=== PATIENT | male | born 1990 | race Caucasian/White ===

== ENCOUNTER 2021-02-18 20:45 | Emergency (ER) | payer BC ==
--- NOTE | 2021-02-18 22:42 | US ---
EXAMINATION TYPE: US scrotum with doppler. Grayscale and color Doppler Duplex imaging performed of t emeterio scrotum. DATE OF EXAM: 02/18/2021 COMPARISON: NONE CLINICAL HISTORY: TESTICULAR SWELLING PAIN . EXAM MEASUREMENTS: TESTICLES: Right Testicle: 4.6 x 2.2 x 2.7 cm Left Testicle: 4.7 x 2.3 x 2.6 cm EPIDIDYMIS HEAD: Right Epididymis: 0.9 cm Left Epididymis: 0.8 cm Doppler performed to assess for testicular vascularity; good bilateral color flow and waveforms are s een. There is no evidence of testicular torsion. Presence of hydroceles: no Presence of varicoceles: no IMPRESSION: Normal exam. No testicular torsion or mass.
--- NOTE | 2021-02-18 22:56 | ED ---
Male Urogenital HPI - General Chief complaint: Urogenital Stated complaint: Testicle Pain Time Seen by Provider: 02/18/21 22:06 Source: patient Mode of arrival: ambulatory Limitations: no limitations - History of Present Illness Initial comments: Patient is 30-year-old man who presents to be evaluated for left testicular pain. The patient states that he noted onset of aching pain on , and A little bit worse on the following day and then was better Thursday and Thursday however it recurred today approximately 5 PM and has been moderate to severe since that time. The patient denies any known trauma. Patient states that he showed his and she felt there was swelling and they were therefore concerned about possibility of torsion. The patient has not noted any fever or chills. No change in urination. No urethral discharge. The patient denies any new sexual exposures. There is no abdominal pain. No change in urination or bowel movements. MD Complaint: testicle pain -: days(s) Location: left testicle Radiation: none Severity: moderate Quality: aching Consistency: constant Improves with: none Worsens with: palpation Reports: denies other symptoms - Related Data Sexually active: Yes Home Medications Medication Instructions Recorded Confirmed No Known Home Medications 02/18/21 02/18/21 Allergies Allergy/AdvReac Type Severity Reaction Status Date / Time codeine AdvReac Rash/Hives Verified 02/18/21 23:03 Review of Systems ROS Statement: Those systems with pertinent positive or pertinent negative responses have been documented in the HPI. ROS Other: All systems not noted in ROS Statement are negative. Constitutional: Denies: fever, chills Respiratory: Denies: cough, dyspnea Cardiovascular: Denies: chest pain Gastrointestinal: Denies: abdominal pain, nausea, vomiting, diarrhea, constipation Genitourinary: Reports: as per HPI, testicular pain. Denies: urgency, dysuria, frequency, hematuria, discharge Musculoskeletal: Denies: back pain Skin: Denies: rash Neurological: Denies: headache Past Medical History Past Medical History: No Reported History History of Any Multi-Drug Resistant Organisms: None Reported Additional Past Surgical History / Comment(s): VASECTOMY Past Psychological History: No Psychological Hx Reported Smoking Status: Never smoker Past Alcohol Use History: None Reported Past Drug Use History: None Reported General Exam Limitations: no limitations General appearance: alert, in no apparent distress Head exam: Present: atraumatic, normocephalic Eye exam: Present: normal appearance GI/Abdominal exam: Present: soft. Absent: distended, tenderness, guarding, rebound, rigid, mass, pulsatile mass, hernia exam: Present: testicular tenderness (Left), vertical testicular lie, other (Genital piercing present. There is no erythema, warmth, or other suggestion of acute infection. Inguinal nodes are normal). Absent: urethral discharge, scrotal swelling Neurological exam: Present: alert Skin exam: Present: warm, dry, intact, normal color. Absent: rash Course Vital Signs 02/18/21 21:38 Temperature 98.1 F Pulse Rate 63 Respiratory 18 Rate Blood Pressure 121/71 O2 Sat by Pulse 98 Oximetry Medical Decision Making - Lab Data Lab Results 02/18/21 Range/Units 22:56 Urine Color Yellow Urine Appearance Clear (Clear) Urine pH 6.0 (5.0-8.0) Ur Specific [place] 1.032 (1.001-1.035) Urine Protein Trace H (Negative) Urine Glucose (UA) Negative (Negative) Urine Ketones Negative (Negative) Urine Blood Negative (Negative) Urine Nitrite Negative (Negative) Urine Bilirubin Negative (Negative) Urine Urobilinogen 2.0 (<2.0) mg/dL Ur Leukocyte Esterase Negative (Negative) Disposition Clinical Impression: Testicular pain, left Disposition: HOME SELF-CARE Condition: Good Instructions (If sedation given, give patient instructions): Testicle Pain (ED) Is patient prescribed a controlled substance at d/c from ED?: No Referrals: Nonstaff,Physician [REFERRING] - 1-2 days
[2021-02-18 23:19] LABS: Appearance,Urine Clear (Clear); Bilirubin,Urine Negative (Negative); Blood,Urine Negative (Negative); Color,Urine Yellow; Glucose,Urine (UA) Negative (Negative); Ketones,Urine Negative (Negative); Leukocyte Esterase,Urine Negative (Negative); Nitrite,Urine Negative (Negative); Protein,Urine Trace (Negative); Specific Gravity,Urine 1.032 (1.001-1.035)
[2021-02-18] MEDS ORDERED: traMADol 50 MG STARTER PACK 3 TAB BTL PO STA (23:41)
[2021-02-18 23:48] VITALS: BP 110/62; PULSE 62; RESP 20; TEMP 98.2
[2021-02-19 15:52] LABS: C. trachomatis,PCR Negative (Neg,Equiv); Chlamydia trachomatis Source Urine; N. gonorrhoeae,PCR Negative (Neg,Equiv); Neisseria Source Urine
== END 2021-02-18 23:55 | disposition home or self-care (01) ==
LOC: EC 20:45
DX: N50.812 Left testicular pain (principal)
CPT/HCPCS: 76870; 81003; 87491; 87591; 93975; 99284